=== PATIENT | male | born 1995 | race Caucasian/White ===

== ENCOUNTER 2021-01-03 19:19 | Emergency (ER) | payer OTHER ==
[2021-01-03 20:36] LABS: HEMOGLOBIN 15.2 gm/dl (14.0-17.5); RED BLOOD COUNT 4.99 M/UL (4.20-5.50); WHITE BLOOD COUNT 3.9 K/UL (4.5-11.0)
[2021-01-03 21:00] LABS: BUN/CREATININE RATIO 9 (0-10)
[2021-01-03] MEDS ORDERED: ASPIRIN CHEWABL81 MG PO (23:52)
== END 2021-01-04 00:02 | disposition home or self-care (01) ==
LOC: ER1 19:19
PROVIDERS: Family Medicine
DX: U07.1 COVID-19 (principal); Z88.1 Allergy status to other antibiotic agents
CPT/HCPCS: 71045; 80053; 82550; 82553; 83874; 84484; 85025; 85379; 93005; 99285; Q9967; U0002

== ENCOUNTER → 2021-04-20 | Outpatient (CLI) | payer OTHER ==
[~2021-04-20] MED LIST: ASPIRIN CHEWABL81 MG PO
== END ==
LOC: HEART 5 04-19 13:30
DX: R07.9 Chest pain, unspecified (principal)
CPT/HCPCS: 93306

== ENCOUNTER 2021-05-18 08:42 | Inpatient (IN) | payer OTHER ==
[~2021-05-18] VITALS: Ht 182.9 cm; Wt 77.1 kg
[2021-05-18 09:29] LABS: RED BLOOD COUNT 5.18 M/UL (4.20-5.50); WHITE BLOOD COUNT 8.1 K/UL (4.5-11.0)
[2021-05-18 09:50] LABS: BUN/CREATININE RATIO 21 (0-10)
--- NOTE | 2021-05-19 06:01 | NUR ---
Prepped patient's chest from nipple line to top of shoulders with clippers at this time. Patient's chest and hands washed with chlorohexidine guconate cloth. Patient prepped and awaiting ICD implant.
[2021-05-19] MEDS ORDERED: HYDROCODON-ACE1 EAC4 PO (11:01)
[2021-05-19] MEDS ORDERED: CLINDAMYCIN HC300 MG PO (11:01)
[2021-05-19] MEDS ORDERED: CEPHALEXIN500 MG PO (11:01)
== END 2021-05-20 11:34 | disposition home or self-care (01) | DRG 227 ==
LOC: CATH 08:42 → MED SURG 4 15:31 → CATH 19:06 → MED SURG 4 19:06
PROVIDERS: ADMIT Internal Medicine Cardiovascular Disease
PROC: 4A023FZ Measurement of Cardiac Rhythm, Percutaneous Approach (ICD-10-PCS; 2021-05-18)
PROC: 4A0234Z Measurement of Cardiac Electrical Activity, Percutaneous Approach (ICD-10-PCS; 2021-05-18)
PROC: 0JH608Z Insertion of Defibrillator Generator into Chest Subcutaneous Tissue and Fascia, Open Approach (ICD-10-PCS; principal; 2021-05-19)
PROC: 02HK3KZ Insertion of Defibrillator Lead into Right Ventricle, Percutaneous Approach (ICD-10-PCS; 2021-05-19)
PROC: 02H60KZ Insertion of Defibrillator Lead into Right Atrium, Open Approach (ICD-10-PCS; 2021-05-19)
DX: I49.8 Other specified cardiac arrhythmias (principal); I49.01 Ventricular fibrillation; Z20.822 Contact with and (suspected) exposure to COVID-19; I45.10 Unspecified right bundle-branch block; K21.9 Gastro-esophageal reflux disease without esophagitis; I47.1 Supraventricular tachycardia; Z88.1 Allergy status to other antibiotic agents; Z98.890 Other specified postprocedural states; Z82.49 Family history of ischemic heart disease and other diseases of the circulatory system; Z83.3 Family history of diabetes mellitus; Z81.8 Family history of other mental and behavioral disorders
CPT/HCPCS: 33249; 36415; 71045; 80048; 85025; 85610; 93620; 93621; 93623; 93641; 99152; 99153; C1721; C1730; C1766; C1895; J0461; J1644; J2250; J2270; J2690; J3010; J3370; J7040; J7050; J7070; U0002